=== PATIENT | female | born 1970 | race Caucasian/White ===

== ENCOUNTER 2017-08-09 06:09 | Inpatient (IN) ==
[2017-08-03 12:59] LABS: Appearance,Urine CLEAR; Bacteria,Urine 0 /hpf (0); Bilirubin,Urine NEG (NEG); Color,Urine AMBER; Glucose,Urine (UA) NEGATIVE (NEG); Leukocyte Esterase,Urine NEG /uL (NEG); Mucus,Urine MOD /hpf (0); Protein,Urine 30 mg/dL (NEG); Specific Gravity,Urine 1.024 (1.000-1.035); Urine Blood NEG mg/dL (<0.03); Urine RBC 1 /hpf (0-1); Urine Squamous Epithelial Cell 1 /hpf (0-4); Urine WBC 2 /hpf (0-4)
[2017-08-03 14:03] LABS: Basophils # (Auto) 0 K/mcL (0.0-0.3); Basophils % (Auto) 0.4 % (0.0-2.0); Eosinophils # (Auto) 0.1 K/mcL (0.0-0.7); Eosinophils % (Auto) 2.2 % (0.0-7.0); Granulocytes % (Auto) 64.9 % (38.0-78.0); Lymphocytes # (Auto) 1.3 K/mcL (1.5-4.8); Lymphocytes % (Auto) 24.5 % (15.5-49.0); Mean Cell Volume 86.3 fL (80.0-100.0); Mean Corpuscular HGB Conc 34.7 g/dL (31.0-36.0); Mean Corpuscular Hemoglobin 29.9 pg (26.0-34.0); Monocytes # (Auto) 0.4 K/mcL (0.1-0.9); Platelet Count 195 K/mcL (140-440); RBC 4.95 M/mcL (4.00-5.20); Red Cell Distribution Width 11.9 % (11.5-14.5)
[2017-08-03 14:22] LABS: Blood Urea Nitrogen 20 mg/dl (6-20)
[~2017-08-09 06:09] MED LIST: ACETAMINOPHEN 500 MG TABLET PO SCH; CELECOXIB 200 MG CAPSULE PO SCH; PREGABALIN 75 MG CAPSULE PO SCH; ceFAZolin 1 GM VIAL IV SCH; oxyCODONE 10 MG TAB.ER.12H PO SCH
[2017-08-09] MEDS ORDERED: KETOROLAC 30 MG, ROPIVACAINE HCL/PF 49.5 ML, EPINEPHrine 0.5 MG, 0.9 % SODIUM CHLORIDE ... IJ SCH (06:30)
[2017-08-09] MEDS ORDERED: SCOPOLAMINE 1 PATCH PATCH TOPICAL ONE (06:37)
[2017-08-09] MEDS ORDERED: KETAMINE 100 MG/ML ML IV ONE (07:35)
[2017-08-09] MEDS ORDERED: LIDOCAINE HCL/PF 100 MG/5 ML SYRINGE IV ONE (07:35)
[2017-08-09] MEDS ORDERED: PROPOFOL 200 MG/20 ML VIAL IV ONE (07:35)
[2017-08-09] MEDS ORDERED: FAMOTIDINE/PF 20 MG/2 ML VIAL IV ONE (07:35)
[2017-08-09] MEDS ORDERED: ONDANSETRON 4 MG/2 ML VIAL IV ONE (07:35)
[2017-08-09] MEDS ORDERED: BUPIVACAINE W/EPI 0.5% 50 ML VIAL IJ ONE (07:35)
[2017-08-09] MEDS ORDERED: PHENYLEPHRINE 10 MG/ML VIAL IV ONE (07:35)
[2017-08-09] MEDS ORDERED: DEXAMETHASONE 10 MG/ML VIAL IV ONE (07:35)
[2017-08-09] MEDS ORDERED: TRANEXAMIC ACID 1,000 MG/10 ML VIAL IV ONE (07:35)
[2017-08-09] MEDS ORDERED: MIDAZOLAM 2 MG/2 ML VIAL IV ONE (07:35)
[2017-08-09] MEDS ORDERED: GLYCOPYRROLATE 0.2 MG/ML VIAL IV ONE (07:35)
[2017-08-09] MEDS ORDERED: GENTAMICIN SULFATE 800 MG/20 ML VIAL IR ONE (08:02)
[2017-08-09] MEDS ORDERED: HYDROmorphone 2 MG/ML VIAL IV PRN (08:16)
[2017-08-09] MEDS ORDERED: METHOCARBAMOL 1,000 MG/10 ML VIAL IV PRN (08:16)
[2017-08-09] MEDS ORDERED: PROMETHAZINE 25 MG/ML VIAL IV PRN (08:16)
[2017-08-09] MEDS ORDERED: BENZOCAINE/MENTHOL 1 LOZENGE PO PRN ×2 (08:16→09:02)
[2017-08-09] MEDS ORDERED: LACTATED RINGERS 250 ML IV PRN (08:16)
[2017-08-09] MEDS ORDERED: FLUMAZENIL 0.1 MG/ML ML IV PRN (08:16)
[2017-08-09] MEDS ORDERED: NALOXONE HCL 0.4 MG/ML VIAL IV PRN (08:16)
[2017-08-09] MEDS ORDERED: MEPERIDINE 25 MG/ML SYRINGE IV PRN (08:16)
[2017-08-09] MEDS ORDERED: ONDANSETRON 4 MG/2 ML VIAL IV PRN ×2 (08:16→09:02)
[2017-08-09] MEDS ORDERED: fentaNYL 100 MCG/2 ML VIAL IV PRN (08:16)
[2017-08-09] MEDS ORDERED: IPRATROPIUM/ALBUTEROL 3 ML AMPUL.NEB NEB PRN (08:16)
[2017-08-09] MEDS ORDERED: ACETAMINOPHEN 1,000 MG/100 ML BOTTLE IV ONE ×2 (08:16→12:30)
[2017-08-09] MEDS ORDERED: LACTATED RINGERS 1,000 ML IV SCH (08:30)
[2017-08-09] MEDS ORDERED: FLEETS ADULT ENEMA PR PRN (09:02)
[2017-08-09] MEDS ORDERED: POLYETHYLENE GLYCOL 3350 17 GM PACKET PO PRN (09:02)
[2017-08-09] MEDS ORDERED: BISACODYL 10 MG SUPP.RECT PR PRN (09:02)
[2017-08-09] MEDS ORDERED: TRANEXAMIC ACID 1,000 MG/10 ML VIAL IV SCH (09:02)
[2017-08-09] MEDS ORDERED: ACETAMINOPHEN 325 MG TABLET PO PRN (09:02)
[2017-08-09] MEDS ORDERED: MAGNESIUM HYDROXIDE 30 ML ORAL.SUSP PO PRN (09:02)
--- NOTE | 2017-08-09 09:02 | Brief Operative Note ---
Date of procedure: 08/09/17 Pre-op diagnosis: left knee djd severe Post-op diagnosis: same Procedure: left tka with robotic Grafts/Implants: Yes Anesthesia: GETA Findings: none Surgeon: Paul Patel Clip Coater: Scott Olmstead Estimated blood loss (cc): 20 Tourniquet Time (Minutes): 60 Specimens Removed/Pathology: none sent Condition: stable Disposition: PACU
[2017-08-09] MEDS ORDERED: IPRATROPIUM/ALBUTEROL SULFATE 1 PUFF INHALER INH PRN (09:07)
--- NOTE | 2017-08-09 10:05 | XRay Report ---
CLINICAL INFORMATION: Postop total knee prostheses COMPARISON: None. FINDINGS: Total knee prostheses is anatomically aligned. No osseous abnormality.. Periarticular gas and soft tissue swelling seen - as expected IMPRESSION: Negative Interpreted and Authenticated by: Gaudencio Gupta 08/09/17
[2017-08-09] MEDS ORDERED: LISINOPRIL 20 MG TABLET PO SCH ×2 (12:00→17:00)
[2017-08-09] MEDS ORDERED: KETOROLAC 15 MG/ML VIAL IV SCH (12:00)
[2017-08-09] MEDS: oxyCODONE/APAP 5/325MG TABLET PO PRN ×2 (13:58→20:33)
[2017-08-09] MEDS: WARFARIN 5 MG TABLET PO SCH (15:13)
[2017-08-09] MEDS: 0.9 % SODIUM CHLORIDE 10 ML SYRINGE IV SCH (16:40)
[2017-08-09] MEDS ORDERED: PANTOPRAZOLE 40 MG TABLET PO SCH (17:00)
[2017-08-09] MEDS: 0.45 % SODIUM CHLORIDE 1,000 ML IV SCH ×3 (17:07→19:38)
[2017-08-09] MEDS: ceFAZolin 1 GM VIAL IV SCH (17:07)
[2017-08-09] MEDS: HYDROmorphone 2 MG/ML VIAL IV PRN (17:08)
[2017-08-09] MEDS: DOCUSATE SODIUM 100 MG CAPSULE PO SCH (20:32)
[2017-08-09] MEDS: FAMOTIDINE 20 MG TABLET PO SCH (20:33)
[2017-08-09] MEDS ORDERED: ASPIRIN 325 MG ENTERIC COATED TABLET PO SCH (21:00)
[2017-08-09] MEDS ORDERED: TEMAZEPAM 15 MG CAPSULE PO PRN (21:00)
[2017-08-09] MEDS ORDERED: SENNOSIDES 1 TABLET PO SCH (21:00)
[2017-08-10] MEDS: ceFAZolin 1 GM VIAL IV SCH (00:01)
[2017-08-10] MEDS: oxyCODONE/APAP 5/325MG TABLET PO PRN ×4 (00:01→14:05)
[2017-08-10] MEDS: 0.9 % SODIUM CHLORIDE 10 ML SYRINGE IV SCH ×2 (00:02→05:05)
[2017-08-10] MEDS: HYDROmorphone 2 MG/ML VIAL IV PRN ×2 (00:03→11:51)
[2017-08-10] MEDS: 0.45 % SODIUM CHLORIDE 1,000 ML IV SCH (06:28)
--- NOTE | 2017-08-10 07:25 | Operative Note ---
DATE OF OPERATION: 08/09/2017 PREOPERATIVE DIAGNOSIS: Left knee degenerative arthritis. POSTOPERATIVE DIAGNOSIS: Left knee degenerative arthritis. PROCEDURE: Left robotic total knee arthroplasty. SURGEON: Paul Patel MD ENGINEERING DESIGNER: Scott Olmstead PA-C ANESTHESIA: General LMA anesthesia. COMPLICATIONS: None. TOURNIQUET TIME: Approximately 55 minutes. DESCRIPTION OF PROCEDURE: The patient was brought to the operating room and put to sleep with general LMA anesthesia. Once asleep, the patient had the left leg sterilely prepped and draped in the usual sterile fashion. A timeout was performed confirming operative site. We then evaluated the robotic findings and proceeded with a robotic total knee arthroplasty. We placed Ioban over the skin and tourniquet was inflated to approximately 250 mmHg. We confirmed our preop antibiotics and tranexamic acid had been given. We placed two pins above and below the knee, placed a midline and mid vastus approach to the knee. We then registered 30 points on the femur and tibia, balanced the knee at 15 and 90 degrees and then positioned the implants on the computer. Once the robot had been confirmed, we brought the robot in and registered the femur and tibia. We first made the tibial cut. Then, we registered the femur, made the femoral cuts. The bony fragments were removed. We remnants of the meniscus and spurs posteriorly. We then implanted and punched into place the tibial baseplate and the femur with [place] components. We then placed a poly liner. This seemed to balance the knee very nicely. This was compared to the robot and we saved these findings. We then prepared the patella. We cut this to 13 mm and then placed the patellar button that was drilled. After the trials were placed we took the knee through range of motion, it was stable perfectly throughout the range of motion. We then cemented into place the [place] components. The poly liner was placed and cemented into place the patellar button. Extra cement was removed. We kept the knee at 45 degrees until the cement was completely dry, we then took the knee through range of motion, tracking very well. We irrigated thoroughly and closed the mid vastus approach with #1 Stratafix x2 sutures. We closed the skin with 2-0 Vicryl and cindy. The patient tolerated this well without complication. Note that the skin closure was an adhesive closure as well. Please note that the arthritis involved both the patellofemoral and medial compartments severely. RBH:rmoan Job ID: [id number] Doc ID: [id number] Paul Patel MD
--- NOTE | 2017-08-10 07:44 | Orthopedic Progress Note ---
Subjective Patient information: Note initiated : 08/10/17 at 7:43 am Service Date, if different from initiated Date: [] Patient: Janel Lua 46 y/o F admitted on 08/09/17 for Left Uni Medial Lisandro Knee. Chief Complaint: [Pt is stable this morning on post operative day 1 without any significant concerns or complaints. Patients vital signs have remained stable. Patients dressing is dry and is grossly instact from a neurovascular and motor standpoint. Patients 10 point ROS is otherwise negative. ] Objective Vital signs: Vital Signs Temp Pulse Resp BP Pulse Ox 08/10/17 05:00 97.4 F 51 L 20 92/53 96 08/10/17 01:00 95 08/10/17 00:00 97.6 F 52 L 20 97/52 95 08/09/17 21:00 94 08/09/17 19:19 97.8 F 61 20 90/53 95 08/09/17 17:00 99 08/09/17 16:03 134/70 98 08/09/17 15:10 97.2 F 16 107/64 97 08/09/17 13:03 97 08/09/17 12:11 104/68 99 08/09/17 11:42 91/48 99 08/09/17 11:11 107/66 100 08/09/17 10:56 82/53 99 08/09/17 10:41 106/68 100 08/09/17 10:26 113/76 99 08/09/17 10:11 115/70 96 08/09/17 10:03 87 18 96/50 98 08/09/17 09:58 93 H 17 101/56 98 08/09/17 09:53 102 H 17 103/55 100 08/09/17 09:48 79 13 90/43 100 08/09/17 09:43 79 14 103/46 100 08/09/17 09:38 79 15 95/45 100 08/09/17 09:33 77 13 100/52 100 08/09/17 09:28 75 13 99/45 100 08/09/17 09:23 75 13 99/55 100 Intake and Output 08/09/17 08/10/17 08/10/17 21:59 05:59 13:59 Intake Total 620 / 620 1640 / 1640 Output Total 250 / 250 550 / 550 Balance 370 / 370 1090 / 1090 Intake: IV 1000 / 1000 Sodium Chloride 0.45% 1,000 ml 1000 / 1000 @ 100 mls/hr IV .Q10H MARY Rx#: [id number] Oral 620 / 620 640 / 640 Output: Void Amount 250 / 250 550 / 550 Other: Meal Lunch Dinner Percent of Meal Consumed 50% 90% Feeding Ability Assist with Tray Set Up # Voids 1 Weight 222 lb 8 oz Intake & Output: Intake & Output 08/09/17 08/10/17 08/10/17 21:59 05:59 13:59 Intake Total 620 / 620 1640 / 1640 Output Total 250 / 250 550 / 550 Balance 370 / 370 1090 / 1090 Weight 222 lb 8 oz Intake: IV 1000 / 1000 Sodium Chloride 0.45% 1,000 ml 1000 / 1000 @ 100 mls/hr IV .Q10H MARY Rx#: [id number] Oral 620 / 620 640 / 640 Output: Void Amount 250 / 250 550 / 550 Other: Meal Lunch Dinner Percent of Meal Consumed 50% 90% Feeding Ability Assist with Tray Set Up # Voids 1 Incision: Yes healing Incision clean and dry: Yes Dressing: Yes clean, Yes dry Weight bearing status: full Neurological exam IM: Yes motor sensory intact, Yes neurovascular intact Extremities exam IM: Yes Foot pink and warm, Yes neurovascular intact - Labs CBC & BMP: 08/10/17 05:29 08/03/17 11:27 Labs: Orthopedic Labs 08/03/17 11:27 PT 14.3 INR 1.1 APTT 33 08/10/17 08/03/17 05:29 11:28 Hgb 14.8 Hct 35.2 L 42.7 Assessment and Plan (1) Hx of total knee arthroplasty The patient has been educated regarding dressing care, Physical Therapy recommendations, home exercises, restrictions, and follow up appointments. The patient has had all necessary DME prescribed. The patient has remained stable during their hospital course. The patient was discharge with a stable exam. Leave Dermabond patch intact until followup Status: Acute
--- NOTE | 2017-08-10 07:46 | Discharge Summary ---
Ortho Discharge - TKA - Patient Instructions Diet: Regular Diet Activity: activity as tolerated, weight bearing as tolerated Total Knee Protocol: For Total Knee: Start ROM ANNETTE with stationary bike or rocking chair. Work on gaining full extension of knee. Posterior dislocation precautions provided. Hip abductor strengthening and gait training instructions provided. Apply Cryocuff as instructed. Dressing Care: May shower in 2 days - Problem Maintenance (1) Hx of total knee arthroplasty Status: Acute - Follow Up Plan Follow Up Appointments: Paul Patel MD [Physician] - 08/24/17 10:00 am Disposition: Home, Self-Care Prognosis: Good Rehab Potential: Good I certify that the patient requires SNF services: No Overall status at discharge: patient is progressing back to baseline - Orders For Discharge Prescriptions: Docusate Sodium [Colace] 100 mg PO BID #60 cap oxyCODONE/APAP [Percocet 5-325 mg] 1 - 2 tab PO Q4HP PRN #75 tab PRN Reason: Pain Level 3-6
[2017-08-10] MEDS: DOCUSATE SODIUM 100 MG CAPSULE PO SCH (08:33)
[2017-08-10] MEDS: FAMOTIDINE 20 MG TABLET PO SCH (08:33)
[2017-08-10] MEDS ORDERED: HYDROCHLOROTHIAZIDE 25 MG TABLET PO SCH (09:00)
[2017-08-10] MEDS: WARFARIN 5 MG TABLET PO SCH (15:48)
[2017-08-10] MEDS ORDERED: ESTRADIOL 1 MG TABLET PO SCH (17:00)
== END 2017-08-10 16:00 | disposition home or self-care (01) | DRG 470 ==
LOC: SUR 06:09 → MEDSUR 09:03
PROVIDERS: ADMIT Orthopaedic Surgery; ATTEND Orthopaedic Surgery